=== PATIENT | male | born 1940 | race Caucasian/White ===

== ENCOUNTER 2020-06-28 22:45 | Inpatient (IN) ==
[2020-06-28] MEDS ORDERED: Acetaminophen 325 MG TABLET PO ONE (22:57)
[2020-06-28] MEDS ORDERED: Dexamethasone 4 MG/ML VIAL IVP ONE (22:57)
[2020-06-29 00:20] LABS: Basophils # 0.1 K/mcL (0.0-0.2); Basophils % 0.7 %; Eosinophils # 0.1 K/mcL (0.0-0.6); Eosinophils % 0.7 %; Hematocrit 38.2 % (37.5-50.1); Hemoglobin 12.1 g/dL (12.9-16.9); Immature Granulocytes % 0.4 % (0-4); Lymphocytes # 0.4 K/mcL (0.6-4.6); Lymphocytes % 6.1 %; Mean Corpuscular HGB Conc 31.7 g/dL (31.6-35.5); Mean Corpuscular Hemoglobin 29.6 pg (28.0-33.3); Mean Corpuscular Volume 93.4 fL (83.0-100.0); Mean Platelet Volume 10.3 fL (9.4-12.4); Monocytes # 0.1 K/mcL (0.0-1.3); Neutrophils # 6.6 K/mcL (1.6-8.9); Platelet Count 150 K/mcL (140-400); Red Blood Count 4.09 M/mcL (4.19-5.50); Red Cell Distribution Width 13.2 % (11.5-14.5); Segmented Neutrophils % 91.1 %; White Blood Count 7.2 K/mcL (4.3-11.1)
[2020-06-29 00:26] LABS: INR 1.1; Prothrombin Time 12.4 Seconds (9.4-12.1)
[2020-06-29 00:28] LABS: VBG HCO3 25 mEq/L (21-27); VBG PCO2 54 mmHg (41-51); VBG PH 7.28 pH Units (7.32-7.42); VBG PO2 23 mmHg (25-50)
[2020-06-29 00:28] LABS: Activated Partial Thrombo Time 25.4 Seconds (26.0-36.0)
[2020-06-29 00:36] LABS: D-Dimer > 500 ng/mLFEU (0-500); Troponin I < 0.03 ng/mL (< 0.04)
[2020-06-29] MEDS ORDERED: levoFLOXacin 750 MG/150 ML 750 MG/150 ML BAG IVPB ONE (00:52)
[2020-06-29 01:03] LABS: Alanine Aminotransferase 13 Units/L (7-52); Albumin 3.8 g/dL (3.5-5.7); Alkaline Phosphatase 69 Units/L (34-104); Aspartate Amino Transferase 22 Units/L (13-39); BUN/Creatinine Ratio 18 (6-26); Bilirubin,Direct 0.2 mg/dL (0.0-0.2); Bilirubin,Indirect 0.4 mg/dL (0.0-1.0); Bilirubin,Total 0.6 mg/dL (0.3-1.0); Blood Urea Nitrogen 44 mg/dL (8-23); Calcium 9.1 mg/dL (8.6-10.3); Carbon Dioxide 26 mEq/L (23-29); Chloride 103 mEq/L (98-107); Globulin 3.9 g/dL (2.4-3.5); Glucose 100 mg/dL (70-105); Osmolality,Calculated 289 (280-300); Potassium 5.2 mEq/L (3.5-5.1); Sodium 134 mEq/L (136-145); Total Protein 7.7 g/dL (6.4-8.9); eGFR For African Americans 32 (> 60); eGFR For Non-African Americans 26 (> 60)
[2020-06-29] MEDS ORDERED: 0.9 % Sodium Chloride 1,000 ML IVC ONE (01:38)
[2020-06-29 02:05] LABS: Bilirubin,Urine Negative (Negative); Blood,Urine Negative (Negative); Clarity,Urine Clear (Clear); Color,Urine Yellow (Yellow); Glucose,Urine (UA) Normal (Normal); Ketones,Urine Negative (Negative); Leukocyte Esterase,Urine Negative (Negative); Nitrite,Urine Negative (Negative); PH,Urine 5.5 pH Units (5.0-8.0); Protein,Urine 100 mg/dL (Neg-Trace); Specific Gravity,Urine 1.025 (1.010-1.025); Urobilinogen,Urine Normal (Normal)
[2020-06-29 02:11] LABS: Bacteria,Urine None Seen per hpf (None-Few); RBC,Urine 0-3 per hpf (0-3); Squamous Epithelial Cell,Urine Few per hpf (None-Few); WBC,Urine 0-3 per hpf (0-3)
[2020-06-29] MEDS ORDERED: Mag Hydrox/Al Hydrox/Simeth 30 ML UDC PO PRN (04:15)
[2020-06-29] MEDS ORDERED: Acetaminophen 325 MG TABLET PO PRN (04:15)
[2020-06-29] MEDS ORDERED: Ipratropium/Albuterol Neb 3 ML IH PRN (04:15)
[2020-06-29] MEDS ORDERED: Ondansetron 4 MG/2 ML VIAL IVP PRN (04:15)
[2020-06-29] MEDS ORDERED: Naloxone 0.4 MG/ML INJ IVP PRN (04:15)
[2020-06-29] MEDS ORDERED: Ringers Solution, Lactated 1,000 ML IVC SCH (04:15)
[2020-06-29] MEDS ORDERED: Fluticasone Propionate Nasal 50 MCG/SPRAY BOTTLE NS PRN (04:45)
[2020-06-29] MEDS: *HR* Heparin 5,000 UNIT/ML VIAL SQ SCH ×3 (05:12→22:16)
[2020-06-29 05:25] LABS: Influenza A PCR Negative (Negative); Influenza B PCR Negative (Negative); Resp. Syncytial Virus PCR Negative (Negative)
[2020-06-29 05:33] LABS: SARS-CoV-2 by PCR (In House) Negative (Negative)
[2020-06-29] MEDS ORDERED: Ipratropium 1 PUFF INHALER IH SCH (09:00)
[2020-06-29] MEDS ORDERED: MethylPREDNISolone 40 MG/ML VIAL IVP ONE (09:00)
[2020-06-29] MEDS: Artificial Tears SOLN 15 ML BOTTLE OP SCH ×4 (09:36→21:09)
[2020-06-29] MEDS: Famotidine 20 MG TABLET PO SCH ×2 (09:36→17:04)
[2020-06-29] MEDS: Cholecalciferol (D-3) 1,000 UNIT (25MCG) TABLET PO SCH (09:36)
[2020-06-29] MEDS: lisinopriL 5 MG TABLET PO SCH (09:36)
[2020-06-29] MEDS: Aspirin Enteric Coated 81 MG Tablet PO SCH (09:36)
[2020-06-29] MEDS: atenoloL 50 MG TABLET PO SCH (09:36)
[2020-06-29] MEDS: Cetirizine HCl 5 MG/5 ML UDC PO SCH (09:38)
[2020-06-29] MEDS: Fluticasone Propionate Nasal 50 MCG/SPRAY BOTTLE NS PRN (09:39)
[2020-06-29] MEDS: IPRATROPIUM BROMIDE NS SCH ×2 (09:42→21:09)
[2020-06-29] MEDS ORDERED: Budesonide/Formoterol 160/4.5 1 PUFF INH IH SCH (10:00)
[2020-06-29 15:48] LABS: Hematocrit 32.4 % (37.5-50.1); Hemoglobin 10.7 g/dL (12.9-16.9); Mean Corpuscular Hemoglobin 30.1 pg (28.0-33.3); Mean Corpuscular Volume 91.3 fL (83.0-100.0); Mean Platelet Volume 10.2 fL (9.4-12.4); Platelet Count 138 K/mcL (140-400); Red Blood Count 3.55 M/mcL (4.19-5.50); Red Cell Distribution Width 13.2 % (11.5-14.5); White Blood Count 11.7 K/mcL (4.3-11.1)
[2020-06-29 16:03] LABS: Calcium 9.4 mg/dL (8.6-10.3); Potassium 4.9 mEq/L (3.5-5.1)
[2020-06-29] MEDS ORDERED: 0.9 % Sodium Chloride 1,000 ML IVC SCH (16:30)
[2020-06-29] MEDS: predniSONE 20 MG TABLET PO SCH (17:04)
[2020-06-29] MEDS: cefTRIAXone 1,000 MG in Water for inj. (sterile) 10 ML IVP SCH (17:40)
[2020-06-30 05:44] LABS: Basophils % 0.2 %; Hemoglobin 11.7 g/dL (12.9-16.9); Immature Granulocytes % 0.7 % (0-4); Lymphocytes % 6.3 %; Mean Corpuscular HGB Conc 32.5 g/dL (31.6-35.5); Mean Corpuscular Volume 92.3 fL (83.0-100.0); Mean Platelet Volume 11.2 fL (9.4-12.4); Monocytes # 0.7 K/mcL (0.0-1.3); Monocytes % 4.5 %; Neutrophils # 14.3 K/mcL (1.6-8.9); Platelet Count 159 K/mcL (140-400); Red Cell Distribution Width 13.5 % (11.5-14.5); Segmented Neutrophils % 88.3 %; White Blood Count 16.2 K/mcL (4.3-11.1)
[2020-06-30 05:52] LABS: Calcium 9.6 mg/dL (8.6-10.3); Potassium 5.6 mEq/L (3.5-5.1)
[2020-06-30 05:55] LABS: Magnesium 1.4 mg/dL (1.6-2.6); Phosphorous 2.4 mg/dL (2.7-4.5)
[2020-06-30] MEDS: *HR* Heparin 5,000 UNIT/ML VIAL SQ SCH ×3 (06:27→21:08)
[2020-06-30] MEDS: Famotidine 20 MG TABLET PO SCH (10:15)
[2020-06-30] MEDS: Artificial Tears SOLN 15 ML BOTTLE OP SCH ×4 (10:16→21:08)
[2020-06-30] MEDS: atenoloL 50 MG TABLET PO SCH (10:17)
[2020-06-30] MEDS: lisinopriL 5 MG TABLET PO SCH (10:17)
[2020-06-30] MEDS: Cholecalciferol (D-3) 1,000 UNIT (25MCG) TABLET PO SCH (10:17)
[2020-06-30] MEDS: Aspirin Enteric Coated 81 MG Tablet PO SCH (10:17)
[2020-06-30] MEDS: cefTRIAXone 1,000 MG in Water for inj. (sterile) 10 ML IVP SCH (10:17)
[2020-06-30] MEDS: IPRATROPIUM BROMIDE NS SCH ×2 (10:18→21:08)
[2020-06-30] MEDS: Cetirizine HCl 5 MG/5 ML UDC PO SCH (10:20)
[2020-06-30] MEDS: predniSONE 20 MG TABLET PO SCH (10:57)
[2020-06-30] MEDS: SODIUM ZIRCONIUM CYCLOSILICATE 5 GM POWD.PACK PO SCH (17:31)
[2020-07-01] MEDS: *HR* Heparin 5,000 UNIT/ML VIAL SQ SCH (04:55)
[2020-07-01 06:27] LABS: Hemoglobin 12.2 g/dL (12.9-16.9); Mean Corpuscular HGB Conc 32.1 g/dL (31.6-35.5); Mean Corpuscular Hemoglobin 29.4 pg (28.0-33.3); Mean Corpuscular Volume 91.6 fL (83.0-100.0); Mean Platelet Volume 10.8 fL (9.4-12.4); Platelet Count 174 K/mcL (140-400); Red Blood Count 4.15 M/mcL (4.19-5.50); Red Cell Distribution Width 13.4 % (11.5-14.5)
[2020-07-01 06:28] VITALS: BP 138/90
[2020-07-01 06:43] LABS: Calcium 9.4 mg/dL (8.6-10.3); Magnesium 1.7 mg/dL (1.6-2.6); Potassium 4.2 mEq/L (3.5-5.1)
[2020-07-01] MEDS ORDERED: Famotidine 20 MG TABLET PO SCH (09:00)
[2020-07-01] MEDS ORDERED: levoFLOXacin 500 MG TABLET PO SCH (09:00)
[2020-07-01] MEDS ORDERED: predniSONE 20 MG TABLET PO SCH (09:00)
[2020-07-01] MEDS: Aspirin Enteric Coated 81 MG Tablet PO SCH (09:56)
[2020-07-01] MEDS: lisinopriL 5 MG TABLET PO SCH (09:56)
[2020-07-01] MEDS: Artificial Tears SOLN 15 ML BOTTLE OP SCH (09:57)
[2020-07-01] MEDS: SODIUM ZIRCONIUM CYCLOSILICATE 5 GM POWD.PACK PO SCH (09:57)
[2020-07-01] MEDS: atenoloL 50 MG TABLET PO SCH (09:57)
[2020-07-01] MEDS: Cholecalciferol (D-3) 1,000 UNIT (25MCG) TABLET PO SCH (09:57)
[2020-07-01] MEDS: Fluticasone Propionate Nasal 50 MCG/SPRAY BOTTLE NS PRN (09:58)
[2020-07-01] MEDS: Cetirizine HCl 5 MG/5 ML UDC PO SCH (10:03)
[2020-07-01] MEDS: IPRATROPIUM BROMIDE NS SCH (10:03)
== END 2020-07-01 15:54 | disposition home or self-care (01) | DRG 190 ==
LOC: EMEROOGRE 22:45 → SUATTDRO 06-29 03:12 → INTOOBSV 06-29 03:12 → OBSVTOIN 06-29 03:12 → INPGRE 06-29 03:12
PROVIDERS: ADMIT Internal Medicine; ATTEND Family Medicine